=== PATIENT | male | born 1955 | race Hispanic/Latino ===

== ENCOUNTER 2023-01-13 11:46 | Inpatient (IN) | payer OTHER ==
--- NOTE | 2023-01-13 12:19 | RAD REPORT ---
EXAM DESCRIPTION: CT - Ct Stroke Brain Wo Cont - 01/13/2023 12:12 pm CLINICAL HISTORY: STROKE ALERT COMPARISON: No comparisons TECHNIQUE: Noncontrast head CT images were obtained without IV contrast. Multiplanar reformats were generated and reviewed. All CT scans are performed using dose optimization technique as appropriate and may include automated exposure control or mA/KV adjustment according to patient size. FINDINGS: No intracranial hemorrhage, mass, or edema. Midline structures are unremarkable. Normal ventricular caliber for age. Stevenson-white matter differentiation is preserved, without evidence of acute infarct. No abnormal extra- axial fluid collections. Mastoid air cells and visualized portions of the paranasal sinuses are clear. No acute bony findings. IMPRESSION: No evidence of an acute intracranial process. The findings were communicated to Gideon Bardales on 01/13/2023 at 12:02 hours.
[2023-01-13 12:34] LABS: Absolute Lymphocytes (CBC) 1.5 K/uL (0.7-4.9); Hematocrit 37.7 % (39.6-49.0); Lymphocytes % 17.8 % (15.3-44.8); MCV 96.2 fL (80-100); MPV 8.3 fL (7.6-11.3); Platelets 212 thou/uL (152-406); RBC Red Blood Cell Count 3.92 M/uL (4.33-5.43)
--- NOTE | 2023-01-13 12:36 | RAD REPORT ---
EXAM DESCRIPTION: CT - Head angio - 01/13/2023 12:12 pm CLINICAL HISTORY: WEAKNESS COMPARISON: Ct Stroke Brain Wo Cont dated 01/13/2023; Neck Angio dated 01/13/2023 TECHNIQUE: Axial CT angiography images of the head was performed with multiplanar and maximum intens ity projection reconstructions. Images performed following intravenous administration of 100mL Isovue 370. All CT scans are performed using dose optimization technique as appropriate and may include automated exposure control or mA/KV adjustment according to patient size. FINDINGS: No evidence of large vessel occlusion. No evidence of aneurysm or dissection flap is detec kayden. No flow-limiting stenosis or vascular malformation identified. Antegrade flow is seen in the vertebral arteries. The vertebral arteries are codominant. Diminutive c aliber of the basilar artery. Patent bilateral posterior communicating arteries. The visualized dural venous sinuses are grossly patent. IMPRESSION: No evidence of large vessel occlusion or flow-limiting stenosis.
--- NOTE | 2023-01-13 12:38 | RAD REPORT ---
EXAM DESCRIPTION: CT - Neck Angio - 01/13/2023 12:12 pm CLINICAL HISTORY: right sided weakness COMPARISON: No comparisons TECHNIQUE: Axial CT angiography images of the head was performed with multiplanar and maximum intens ity projection reconstructions. Images performed following intravenous administration of 100mL Isovue 370. All CT scans are performed using dose optimization technique as appropriate and may include automated exposure control or mA/KV adjustment according to patient size. Quantification of carotid stenosis, if any, is performed according to NASCET criteria. FINDINGS: A left aortic arch is identified with normal three vessel configuration of the great vesse ls. No significant flow abnormality is seen of the common carotid bilaterally. No significant stenosis is identified involving the cervical segments of both internal carotid arteri es. Mild atherosclerotic calcifications of the carotid bulbs are noted bilaterally, without signific ant stenosis Normal flow is seen within both vertebral arteries. Peripheral left upper lobe 2.4 x 1.7 cm nodule. IMPRESSION: No significant flow abnormality of the neck vessels is identified. Mild atherosclerotic calcifications. Peripheral left upper lobe 2.4 x 1.7 cm nodule, indeterminate. Additional evaluation by dedicated CT of the chest on elective basis should be considered. CAROTID STENOSIS REFERENCE USING NASCET CRITERIA: % ICA stenosis = (1 - narrowest ICA diameter/diameter of distal cervical ICA) x 100. Mild - <50% stenosis. Moderate - 50-69% stenosis. Severe - 70-94% stenosis. Near occlusion - 95-99% stenosis. Occluded - 100% stenosis.
[2023-01-13 12:41] LABS: Protime INR 0.91
[2023-01-13] MEDS ORDERED: NA CHLORIDE 0.9% 1,000 ML ONE (12:46)
[2023-01-13 12:54] LABS: ALT/SGPT 21 U/L (16-61); AST/SGOT 21 U/L (15-37); Albumin 3.6 g/dL (3.4-5.0); Alkaline Phosphatase 60 U/L (45-117); BUN Blood Urea Nitrogen 16 mg/dL (7-18); Bicarbonate 26 mEq/L (21-32); Bilirubin Direct < 0.1 mg/dL (0-0.2); Bilirubin Indirect, Calculated ND mg/dL (0.2-0.8); Bilirubin Total 0.3 mg/dL (0.2-1.0); Glomerular Filtration Rate 91 ml/min (=/>90); Glucose Level 96 mg/dL (74-106); Magnesium 2.4 mg/dL (1.6-2.4); Potassium 4.3 mEq/L (3.5-5.1); Protein, Total 7.3 g/dL (6.4-8.2); Sodium Level 135 mEq/L (136-145); Troponin High Sensitivity 19.9 pg/mL (<58.9)
[2023-01-13] MEDS ORDERED: ASPIRIN 81 MG CHEWABLE TABLET ONE (13:02)
--- NOTE | 2023-01-13 13:02 | ER ---
Nurse's Notes [facility] Name: Emanuel Avila Jr Age: 67 yrs Sex: Male : 1955 Arrival Date: 01/13/2023 Time: 11:46 Bed 13 Private MD: Diagnosis: Weakness;Paresthesia of skin Presentation: 01/13 11:45 Chief complaint: EMS states: THEY WERE CALLED DUE TO PATIENT HAVING RIGHT SIDED cm10 WEAKNESS. PT STATES THAT THE WEAKNESS HAS BEEN INTERMITTENT SINCE 0600. PT STATES THAT ON THE WAY TO THE HOSPITAL THE WEAKNESS AND NUMBNESS RESOLVED. Coronavirus screen: Client denies travel out of the [place] in the last 14 days. Ebola Screen: No symptoms or risks identified at this time. Initial Sepsis Screen: Does the patient meet any 2 criteria? No. Patient's initial sepsis screen is negative. Does the patient have a suspected source of infection? No. Patient's initial sepsis screen is negative. Risk Assessment: Do you want to hurt yourself or someone else? Patient reports no desire to harm self or others. Onset of symptoms was January 13, 2023 at 06:00. Care prior to arrival: IV initiated. 18 GA, in the left antecubital area, Glucose check: 96. 11:45 Method Of Arrival: EMS: [facility] cm10 11:45 Acuity: [place] 2 cm10 Triage Assessment: 14:00 General: Appears in no apparent distress. comfortable, Behavior is calm, cooperative, eh3 appropriate for age. Pain: Denies pain. Historical: - Allergies: 12:16 No Known Allergies; cm10 - Home Meds: 12:16 None [Active]; cm10 - PMHx: 12:16 None; cm10 - PSHx: 12:16 None; cm10 - Immunization history:: Adult Immunizations unknown. - Social history:: Smoking status: Patient reports the use of cigarette tobacco products, denies chronic smoking, but will smoke occasionally. - Family history:: not pertinent. - Hospitalizations: : No recent hospitalization is reported. Screenin:26 [facility] ED Fall Risk Assessment (Adult) History of falling in the last 3 months, cm10 including since admission No falls in past 3 months (0 pts) Confusion or Disorientation No (0 pts) Intoxicated or Sedated No (0 pts) Impaired Gait No (0 pts) Mobility Assist Device Used No (0 pt) Altered Elimination No (0 pt) Score/Fall Risk Level 0 - 2 = Low Risk Oriented to surroundings, Maintained a safe environment, Hourly rounding (assess needs \T\ fall precautionary measures) done. Abuse screen: Denies threats or abuse. Denies injuries from another. Nutritional screening: No deficits noted. Tuberculosis screening: No symptoms or risk factors identified. Assessment: 11:49 Reassessment: CODE STROKE CALLED 1149. General: Appears in no apparent distress. cm10 comfortable, Behavior is calm, cooperative. Neuro: No deficits noted. Level of Consciousness is awake, alert, obeys commands, Oriented to person, place, time, situation, Straightedge Man are equal bilaterally Moves all extremities. Speech is normal, Facial symmetry appears normal, Intact. Respiratory: No deficits noted. Airway is patent Respiratory effort is even, unlabored, Respiratory pattern is regular, symmetrical. 14:00 Reassessment: Patient appears in no apparent distress at this time. Patient and/or 3 family updated on plan of care and expected duration. Pain level reassessed. Patient is alert, oriented x 3, equal unlabored respirations, skin warm/dry/pink. 15:00 Reassessment: Patient appears in no apparent distress at this time. Patient and/or eh3 family updated on plan of care and expected duration. Pain level reassessed. Patient is alert, oriented x 3, equal unlabored respirations, skin warm/dry/pink. Vital Signs: 11:45 BP 172 / 76; Pulse 76; Resp 16; Temp 98.4(O); Pulse Ox 100% on R/A; Pain 0/10; cm10 12:26 Weight 53.98 kg (R); cm10 12:47 BP 99 / 62; Pulse 70; Resp 16; Pulse Ox 97% ; bp 14:00 BP 99 / 69; Pulse 68; Resp 18; Pulse Ox 98% on R/A; eh3 15:00 BP 89 / 70; Pulse 81; Resp 18; Pulse Ox 99% on R/A; eh3 11:45 Pain Scale: Adult cm10 ED Course: 11:45 Maintain EMS IV. Dressing intact. Good blood return noted. Site clean \T\ dry. Gauge \T\ cm 10 site: 18G RAC. 11:50 Patient arrived in ED. bp 11:51 Gideon Bardales MD is Attending Physician. rn 12:14 CT Stroke Brain w/o Contrast In Process Unspecified. EDMS 12:[address] In Process Unspecified. EDMS 12:[address] In Process Unspecified. EDMS 12:16 Triage completed. cm10 12:17 Arm band placed on Patient placed in an exam room, on a stretcher, on pulse oximetry. cm10 12:25 Basic Metabolic Panel Sent. cm10 12:25 CBC with Diff Sent. cm10 12:25 Hepatic Function Sent. cm10 12:25 Protime (+inr) Sent. cm10 12:25 Ptt, Activated Sent. cm10 12:25 Magnesium Sent. cm10 12:38 Inserted saline lock: 22 gauge in right forearm, using aseptic technique. Blood cm10 collected. 12:46 Rashaad Green RN is Primary Nurse. bp 12:50 Stroke CXR 1 View In Process Unspecified. EDMS 13:02 Ravindra Bardales MD is Hospitalizing Provider. rn 14:00 Report received from MIKEY Neil. eh3 14:00 Patient has correct armband on for positive identification. Placed in gown. Bed in low eh3 position. Call light in reach. Side rails up X2. Provided Education on: Use of call carrera. Client placed on continuous cardiac and pulse oximetry monitoring. NIBP monitoring applied. 16:30 No provider procedures requiring assistance completed. Patient admitted, IV remains in eh3 place. Administered Medications: 12:38 Drug: NS 0.9% IV 1000 ml Route: IV; Rate: 1000 ml; Site: right forearm; cm10 14:00 Follow up: IV Status: Completed infusion; IV Intake: 1000ml eh3 12:57 Drug: Aspirin PO Chewable Tablet 324 mg Route: PO; bp 14:00 Follow up: Response: No adverse reaction eh3 15:00 Drug: foLIC Acid IVPB 1 mg Route: IVPB; Site: right forearm; eh3 16:00 Follow up: Response: No adverse reaction; IV Status: Completed infusion; IV Intake: [id number] Medication: 12:26 VIS not applicable for this client. cm10 Intake: 14:00 IV: 1000ml; Total: 1000ml. eh3 16:00 IV: 10ml; Total: 1010ml. eh3 Outcome: 13:02 Decision to Hospitalize by Provider. rn 16:32 Admitted to Med/surg accompanied by tech, via wheelchair, room 221, Report called to [facility] Grecia 16:32 Condition: stable 16:32 Instructed on the need for admit. 17:25 Patient left the ED. [facility] Signatures: Dispatcher [employer] EDGideon Taylor MD MD rn Peltier, Brian, RN Floridalma Banerjee RN RN [facility] Joleen Gabriel RN RN 10 Corrections: (The following items were deleted from the chart) 12:25 12:16 Social history: Smoking status: unknown cm10 cm10
--- NOTE | 2023-01-13 13:02 | EDPHYS ---
Physician Documentation [facility] Name: Emanuel Avila Jr Age: 67 yrs Sex: Male : 1955 Arrival Date: 01/13/2023 Time: 11:46 Bed 13 Private MD: ED Physician Gideon Bardales HPI: 01/13 12:21 This 67 yrs old Male presents to ER via EMS with complaints of weakness. rn 12:21 The patient presents to the emergency department with weakness of the right upper rn extremity, right lower extremity, paresthesias of the right lower extremity, right upper extremity. Onset: The symptoms/episode began/occurred this morning, at 06:00. Severity of symptoms: At their worst the symptoms were moderate in the emergency department the symptoms have improved. Current symptoms: Currently, the patient is not experiencing any symptoms. The patient has not experienced similar symptoms in the past. Pt reports woke up at 0600 with right sided weakness and numbness, has been intermittent, worsened at work, 911 was called, now no weakness/numbness. . Historical: - Allergies: 12:16 No Known Allergies; cm10 - Home Meds: 12:16 None [Active]; cm10 - PMHx: 12:16 None; cm10 - PSHx: 12:16 None; cm10 - Immunization history:: Adult Immunizations unknown. - Social history:: Smoking status: Patient reports the use of cigarette tobacco products, denies chronic smoking, but will smoke occasionally. - Family history:: not pertinent. - Hospitalizations: : No recent hospitalization is reported. ROS: 12:21 Constitutional: Negative for fever, chills, and weight loss, Eyes: Negative for injury, rn pain, redness, and discharge, Neck: Negative for injury, pain, and swelling, Cardiovascular: Negative for chest pain, palpitations, and edema, Respiratory: Negative for shortness of breath, cough, wheezing, and pleuritic chest pain, Abdomen/GI: Negative for abdominal pain, nausea, vomiting, diarrhea, and constipation, Back: Negative for injury and pain, MS/Extremity: Negative for injury and deformity, Skin: Negative for injury, rash, and discoloration, Neuro: Negative for headache, and seizure. Exam: 12:21 Constitutional: This is a well developed, well nourished patient who is awake, alert, rn and in no acute distress. Head/Face: Normocephalic, atraumatic. Eyes: Pupils equal round and reactive to light, extra-ocular motions intact. ENT: dry MM Cardiovascular: Regular rate and rhythm. No pulse deficits. Respiratory: No increased work of breathing, no retractions or nasal flaring. Abdomen/GI: Soft, non-tender Skin: Warm, dry MS/ Extremity: Pulses equal, no cyanosis. Neuro: Awake and alert, GCS 15, oriented to person, place, time, and situation. Cranial nerves II-XII grossly intact. Motor strength 5/5 in all extremities. Sensory grossly intact. Cerebellar exam normal. Vital Signs: 11:45 BP 172 / 76; Pulse 76; Resp 16; Temp 98.4(O); Pulse Ox 100% on R/A; Pain 0/10; cm10 12:26 Weight 53.98 kg (R); cm10 12:47 BP 99 / 62; Pulse 70; Resp 16; Pulse Ox 97% ; bp 14:00 BP 99 / 69; Pulse 68; Resp 18; Pulse Ox 98% on R/A; eh3 15:00 BP 89 / 70; Pulse 81; Resp 18; Pulse Ox 99% on R/A; eh3 11:45 Pain Scale: Adult cm10 MDM: 11:51 Patient medically screened. rn 12:31 ED course: Pt back to baseline. ED course: CT head without acute findings per radiology.rn 13:01 Data reviewed: vital signs, nurses notes, lab test result(s), EKG, radiologic studies, rn CT scan, and as a result, I will admit patient. Consideration of Admission/Observation Patient was admitted/placed on observation. Escalation of care including admission/observation considered. I considered the following discharge prescriptions or medication management in the emergency department Medications were administered in the Emergency Department. See MAR. Counseling: I had a detailed discussion with the patient and/or guardian regarding: the historical points, exam findings, and any diagnostic results supporting the discharge/admit diagnosis, lab results, radiology results, the need for further work-up and treatment in the hospital. 01/13 11:53 Order name: Basic Metabolic Panel; Complete Time: 12:57 rn 01/13 11:53 Order name: CBC with Diff; Complete Time: 12:57 rn 01/13 11:53 Order name: Hepatic Function; Complete Time: 12:57 rn 01/13 11:53 Order name: High Sensitivity Troponin; Complete Time: 12:57 rn 01/13 11:53 Order name: Protime (+inr); Complete Time: 12:57 rn 01/13 11:53 Order name: Ptt, Activated; Complete Time: 12:57 rn 01/13 11:53 Order name: Magnesium; Complete Time: 12:57 rn 01/13 15:01 Order name: Magnesium EDMS 01/13 15:01 Order name: Phosphorus EDMS 01/13 15:01 Order name: T4 Free EDMS 01/13 15:01 Order name: Thyroid Stimulating Hormone EDMS 01/13 15:01 Order name: Urinalysis w/ reflexes EDMS 01/13 15:01 Order name: Basic Metabolic Panel EDMS 01/13 15:01 Order name: Basic Metabolic Panel EDMS 01/13 15:01 Order name: CBC with Automated Diff EDMS 01/13 15:01 Order name: CBC with Automated Diff EDMS 01/13 15:01 Order name: Lipid Profile EDMS 01/13 15:01 Order name: Lipid Profile EDMS 01/13 15:44 Order name: CREATININE WHOLE BLOOD EDMS 01/13 11:53 Order name: CT Stroke Brain w/o Contrast; Complete Time: 12:57 rn 01/13 11:53 Order name: Stroke CXR 1 View; Complete Time: 13:14 rn 01/13 11:53 Order name: Head Angio CT; Complete Time: 12:57 rn 01/13 11:53 Order name: Neck Angio CT; Complete Time: 12:57 rn 01/13 15:03 Order name: Head Brain Wo Cont EDMS 01/13 16:10 Order name: MRI EDMS 01/13 11:53 Order name: EKG; Complete Time: 11:54 rn 01/13 15:01 Order name: CONS Physician Consult EDMS 01/13 15:03 Order name: Physical Therapy Consult EDMS 01/13 11:53 Order name: Accucheck; Complete Time: 12:46 rn 01/13 11:53 Order name: Cardiac monitoring; Complete Time: 12:46 rn 01/13 11:53 Order name: EKG - Nurse/Tech; Complete Time: 12:21 rn 01/13 11:53 Order name: IV Saline Lock; Complete Time: 12:18 rn 01/13 11:53 Order name: Labs collected and sent; Complete Time: 12:25 rn 01/13 11:53 Order name: O2 Per Protocol; Complete Time: 12:21 rn 01/13 11:53 Order name: O2 Sat Monitoring; Complete Time: 12:21 rn 01/13 11:53 Order name: Stroke Swallow Screen; Complete Time: 12:46 rn Administered Medications: 12:38 Drug: NS 0.9% IV 1000 ml Route: IV; Rate: 1000 ml; Site: right forearm; cm10 14:00 Follow up: IV Status: Completed infusion; IV Intake: 1000ml eh3 12:57 Drug: Aspirin PO Chewable Tablet 324 mg Route: PO; bp 14:00 Follow up: Response: No adverse reaction eh3 15:00 Drug: foLIC Acid IVPB 1 mg Route: IVPB; Site: right forearm; eh3 16:00 Follow up: Response: No adverse reaction; IV Status: Completed infusion; IV Intake: [id number] Disposition Summary: 01/13/23 13:02 Hospitalization Ordered Hospitalization Status: Observation rn Provider: Ravindra Bardales rn Location: Telemetry/MedSurg (observation) rn Condition: Stable rn Problem: new rn Symptoms: have improved rn Bed/Room Type: Standard rn Room Assignment: 221(01/13/23 16:05) bd Diagnosis - Weakness rn - Paresthesia of skin rn Forms: - Medication Reconciliation Form rn - SBAR form rn Signatures: Dispatcher [employer] EDSilvana Good Roman, MD MD rn Peltier, Brian, RN RN Floridalma Galloway RN RN Joleen Casey RN RN cm10 Corrections: (The following items were deleted from the chart) 12:25 12:16 Social history: Smoking status: unknown cm10 cm10 16:05 13:02 rn bd
--- NOTE | 2023-01-13 13:02 | RAD REPORT ---
EXAM DESCRIPTION: Krzysztof Single View01/13/2023 12:49 pm CLINICAL HISTORY: Numbness and weakness COMPARISON: none FINDINGS: 2.6 centimeter nodule left upper lobe Mild right upper lobe opacity Lungs are mildly hyperaerated. Heart is normal size IMPRESSION: 2.6 centimeter nodule left upper lobe may represent neoplasm. Mild right upper lobe opacity probably scarring. Mildly hyperaerated lungs. Nonemergent CT scan chest recommended
[2023-01-13] MEDS ORDERED: TRAMADOL HCL 50 MG TAB PO PRN (14:53)
[2023-01-13] MEDS ORDERED: ACETAMINOPHEN 325 MG TABLET PO PRN (14:53)
[2023-01-13] MEDS ORDERED: ONDANSETRON 4 MG/2 ML VIAL IV PRN (14:58)
--- NOTE | 2023-01-13 15:02 | P.HP ---
Certification for Inpatient Patient admitted to: Observation With expected LOS: <2 Midnights Patient will require the following post-hospital care: None Practitioner: I am a practitioner with admitting privileges, knowledge of patient current condition, hospital course, and medical plan of care. Services: Services provided to patient in accordance with Admission requirements found in Title 42 Section 412.3 of the Code of Federal Regulations Patient History Date of Service: 01/13/23 Reason for admission: TIA History of Present Illness: Patient is a 67-year-old male with a past medical history significant for nicotine dependence who presents with complaint of right sided weakness onset this morning. Patient reported that he was at home when he had a sudden onset of right sided weakness and patient reported that he could not move the right side of his body. Symptoms resolved shortly. An hour later patient had a similar experience while at work. Patient reported that he completed his work and got into his car. When he got to the traffic stop, patient had a similar episode and patient was able to stumble out of his car. Patient reported that he fell shortly after on the side of the road. Patient denies hitting his head or losing consciousness. Patient reported that he could not get up and a good Zoroastrianism called EMS. Patient reported that he started experiencing tingling\numbness in his right hand after the second episode. While in the ER patient had tingling\numbness in the left hand. Patient denies any other signs and symptoms. Symptoms are aggravated or relieved by nothing. Patient was brought to the hospital for medical evaluation. Allergies No Known Allergies Allergy (Unverified 08/29/15 17:06) - Past Medical/Surgical History -: Nicotine dependence Past Surgical History: Reviewed- Non-Contributory - Family History Father -: Heart disease, Other (see notes) (ID) - Social History Smoking Status: Current every day smoker Counseled patient to stop smoking for: less than 10 minutes Smoking therapy provided: Yes Patient receptive to therapy: Yes Alcohol use: Yes CD- Drugs: No Place of Residence: Home Review of Systems General: Weakness Eyes: Unremarkable ENT: Unremarkable Respiratory: Unremarkable Cardiovascular: Unremarkable Gastrointestinal: Unremarkable Genitourinary: Unremarkable Musculoskeletal: Other (Poor gait ) Integumentary: Unremarkable Neurological: Weakness, Numbness, Other (Bilateral hands tingling ) Lymphatics: Unremarkable Physical Examination - Physical Exam General: Alert, In no apparent distress, Oriented x3, Cooperative HEENT: Atraumatic, PERRLA, Mucous membr. moist/pink, EOMI, Sclerae nonicteric Neck: Supple, 2+ carotid pulse no bruit, No LAD, Without JVD or thyroid abnormality Respiratory: Clear to auscultation bilaterally, Normal air movement Cardiovascular: No edema, Regular rate/rhythm, Normal S1 S2 Capillary refill: <2 Seconds Gastrointestinal: Normal bowel sounds, Soft and benign, No tenderness Musculoskeletal: No clubbing, No contractures, No tenderness Integumentary: No rashes, No significant lesion Neurological: Normal speech, Normal strength at 5/5 x4 extr, Normal tone, Normal affect Lymphatics: No axilla or inguinal lymphadenopathy - Studies Laboratory Data (last 24 hrs) 01/13/23 01/13/23 01/13/23 12:22 12:22 12:22 WBC 8.40 Hgb 12.4 L Hct 37.7 L Plt Count 212 PT 10.0 INR 0.91 APTT 29.0 Sodium 135 L Potassium 4.3 BUN 16 Creatinine 0.93 Glucose 96 Magnesium 2.4 Total Bilirubin 0.3 AST 21 ALT 21 Alkaline Phosphatase 60 Assessment and Plan - Plan --CVA. MRI brain indicates a 20 x 4 millimeter acute infarction left basal ganglia/left internal capsule. Neurology consulted. Patient placed on aspirin, folic acid and statin. Echocardiogram pending to assess current structures and function. PT eval and treat. Will await further recommendation from neurologist. --Nicotine dependence. Patient counseled on tobacco cessation. Refuses nicotine patch. --Paresthesias. Secondary to CVA. Continue supportive care. --Abnormality of gait and mobility. PT eval and treat. Continue supportive care. --DVT prophylaxis with Lovenox subQ Discharge Plan: Home Plan to discharge in: 48 Hours - Advance Directives Does patient have a Living Will: No Does patient have a Durable POA for Healthcare: No - Code Status/Comfort Care Code Status Assessed: Yes Physician Review: Patient Assessed, Agree with Above Assessment and Plan Critical Care: No
[2023-01-13] MEDS ORDERED: FOLIC ACID 5 MG/ML VIAL ONE (15:10)
--- NOTE | 2023-01-13 16:10 | RAD REPORT ---
EXAM DESCRIPTION: MRI - Brain Wo Cont - 01/13/2023 3:48 pm CLINICAL HISTORY: Right side weakness COMPARISON: Head CT January 2003 TECHNIQUE: Axial, sagittal, and coronal magnetic resonance images of the brain were obtained. FINDINGS: Diffusion-weighted/ADC mapping demonstrate a 20 x 4 millimeter area of abnormal signal left basal nicol glia extending into the posterior left internal capsule consistent with acute infarction. The ventricles are normal caliber. An extra-axial fluid collection is not noted. Fluid within the sinuses/mastoids is not seen IMPRESSION: 20 x 4 millimeter acute infarction left basal ganglia/left internal capsule
[2023-01-13 17:50] VITALS: BMI 18.1
[2023-01-13 18:14] LABS: Magnesium 2.4 mg/dL (1.6-2.4); Phosphorus 3.3 mg/dL (2.5-4.9); Thyroid Stimulating Hormone 1.85 uIU/mL (0.358-3.740)
[2023-01-13] MEDS: ENOXAPARIN 40 MG/0.4 ML SQ SCH (18:28)
[2023-01-13 19:17] LABS: Specific Gravity > 1.030 (1.005-1.030); Urine Bilirubin NEGATIVE (Negative); Urine Blood Negative (Negative); Urine Clarity Clear (Clear); Urine Color Light-Yellow (Yellow); Urine Glucose NEGATIVE (Negative); Urine Protein NEGATIVE (Negative); Urine Urobilinogen Normal (Normal)
[2023-01-13] MEDS ORDERED: PNEUMOCOCCAL VACCINE 0.5 ML IMVAC ONE (20:00)
[2023-01-13] MEDS: FOLIC ACID 1 MG TABLET PO SCH (21:16)
[2023-01-13] MEDS: ATORVASTATIN 40 MG TAB PO SCH (21:17)
[2023-01-14 03:39] LABS: Absolute Lymphocytes (CBC) 1.8 K/uL (0.7-4.9); Lymphocytes % 22.3 % (15.3-44.8); MCV 95.9 fL (80-100); MPV 9.2 fL (7.6-11.3); Platelets 218 thou/uL (152-406); RBC Red Blood Cell Count 4.07 M/uL (4.33-5.43)
[2023-01-14 03:48] LABS: Potassium 3.8 mEq/L (3.5-5.1)
[2023-01-14] MEDS: ASPIRIN 81 MG CHEWABLE TABLET PO SCH (08:15)
[2023-01-14] MEDS: ENOXAPARIN 40 MG/0.4 ML SQ SCH (08:15)
[2023-01-14] MEDS: FOLIC ACID 1 MG TABLET PO SCH (08:15)
[2023-01-14] MEDS ORDERED: POTASSIUM CL SA 10 MEQ TAB PO ONE (09:00)
--- NOTE | 2023-01-14 19:25 | P.PN ---
Subjective Date of Service: 01/14/23 Chief Complaint: TIA Patient is complaining of right leg weakness. He stated his right arm weakness is getting better. She denies any trouble swallowing. Physical Examination - Vital Signs Temperature: 98.6 F Blood Pressure: 98/54 Pulse: 79 Respirations: 18 Pulse Ox (%): 98 Assessment And Plan - Plan Physical Exam General: Alert, In no apparent distress, Oriented x3, Cooperative HEENT: PERRLA, EOMI, Sclerae nonicteric Neck: Supple, 2+ carotid pulse no bruit, Without JVD or thyroid abnormality Respiratory: Clear to auscultation bilaterally, Normal air movement Cardiovascular: No edema, Regular rate/rhythm, Normal S1 S2 Gastrointestinal: Normal bowel sounds, Soft and benign, No tenderness Musculoskeletal: No clubbing, No tenderness Integumentary: No rashes, No significant lesion Neurological: Normal speech, right-sided weakness, Normal affect Diagnosis Acute CVA MRI brain indicates a 20 x 4 millimeter acute infarction left basal ganglia/left internal capsule. Neurology consulted. Continue aspirin, folic acid and statin. Echocardiogram result is pending. Seen by PT. patient has difficulty ambulating due to abnormal gait. No problem with swallowing. Permissive hypertension. Patient may be a candidate for inpatient rehab. Nicotine dependence. Tobacco cessation counseling provided. DVT prophylaxis:Lovenox subQ Disposition: Considering inpatient rehab.
[2023-01-14] MEDS: ATORVASTATIN 40 MG TAB PO SCH (20:13)
[2023-01-15 03:36] LABS: Potassium 4.1 mEq/L (3.5-5.1)
--- NOTE | 2023-01-15 06:41 | ECHO ---
HEIGHT: 5 ft 8 in WEIGHT: 119 lb 0 oz DATE OF STUDY: 01/14/[address]: Shayy Aguila 2-DIMENSIONAL: YES M.MODE: YES DOPPLER: YES COLOR FLOW: YES TDS: PORTABLE: YES DEFINITY: BUBBLE STUDY: DIAGNOSIS: CEREBRAL VASCULAR ACCIDENT CARDIAC HISTORY: CATHERIZATION: NO SURGERY: NO PROSTHETIC VALVE: NO PACEMAKER: NO MEASUREMENTS (cm) DIASTOLIC (NORMALS) SYSTOLIC (NORMALS) IVSd 1.0 (0.6-1.2) LA Diam 1.6 (1.9-4.0) LVEF 63% LVIDd 3.2 (3.5-5.7) LVIDs 2.2 (2.0-3.5) %FS 33% LVPWd 1.2 (0.6-1.2) Ao Diam 2.3 (2.0-3.7) 2 DIMENSIONAL ASSESSMENT: RIGHT ATRIUM: NORMAL LEFT ATRIUM: NORMAL RIGHT VENTRICLE: NORMAL LEFT VENTRICLE: NORMAL TRICUSPID VALVE: NORMAL MITRAL VALVE: NORMAL PULMONIC VALVE: NORMAL AORTIC VALVE: NORMAL PERICARDIAL EFFUSION: NONE AORTIC ROOT: NORMAL LEFT VENTRICULAR WALL MOTION: NORMAL DOPPLER/COLOR FLOW: MILD AORTIC INSUFFICIENCY COMMENTS: 1. NORMAL LEFT VENTRICULAR EJECTION FRACTION 60-65% 2. NORMAL WALL MOTION 3. NORMAL DIASTOLIC FUNCTION 4. MILD AORTIC INSUFFICIENCY TECHNOLOGIST: SOCORRO HILARIO
[2023-01-15] MEDS: ASPIRIN 81 MG CHEWABLE TABLET PO SCH (08:21)
[2023-01-15] MEDS: FOLIC ACID 1 MG TABLET PO SCH (08:21)
[2023-01-15] MEDS: ENOXAPARIN 40 MG/0.4 ML SQ SCH (08:22)
--- NOTE | 2023-01-15 15:45 | P.PN ---
Subjective Date of Service: 01/15/23 Chief Complaint: TIA No new changes from yesterday. Patient has no new complaints. He is tolerating his diet. No change in right upper extremity weakness. Physical Examination - Vital Signs Temperature: 98.5 F Blood Pressure: 131/64 Pulse: 74 Respirations: 16 Pulse Ox (%): 97 - Studies Laboratory Data (last 24 hrs) 01/15/23 02:56 Sodium 137 Potassium 4.1 BUN 15 Creatinine 0.85 Glucose 117 H Assessment And Plan - Plan Physical Exam General: Alert, In no apparent distress, Oriented x3, Cooperative Neck: Supple, no elevated JVD. Respiratory: Clear to auscultation bilaterally, Normal air movement Cardiovascular: No edema, Regular rate/rhythm, Normal S1 S2 Gastrointestinal: Normal bowel sounds, Soft and benign, No tenderness Musculoskeletal: No clubbing, No tenderness Integumentary: No rashes. Neurological: Normal speech, right-sided weakness, Normal affect Diagnosis Acute CVA MRI brain indicates a 20 x 4 millimeter acute infarction left basal ganglia/left internal capsule. Neurology consulted. Continue aspirin, folic acid and statin. Echocardiogram is unremarkable, no thrombus. Seen by PT. Patient has difficulty ambulating due to abnormal gait. No problem with swallowing. Permissive hypertension. Social service consulted to evaluate for inpatient rehab placement. Nicotine dependence. Tobacco cessation counseling provided. DVT prophylaxis:Lovenox subQ Disposition: Inpatient rehab.
--- NOTE | 2023-01-15 18:16 | EKG ---
Test Date: 2023-01-13 Test Time: 12:19:09 Director [facility]: BUTCH MEASUREMENT RESULTS: Intervals: Rate: 67 MI: 198 QRSD: 82 QT: 372 QTc: 393 [place]: P: 80 MI: 198 QRS: 69 T: 77 INTERPRETIVE STATEMENTS: Normal sinus rhythm Normal ECG No previous ECG available for comparison Electronically Signed On 01-15-23 18:12:26 CDT by Michael Feng
[2023-01-15] MEDS: ATORVASTATIN 40 MG TAB PO SCH (21:22)
[2023-01-15] MEDS: ENSURE ENLIVE 237 ML CAN PO SCH (21:23)
[2023-01-16] MEDS: FOLIC ACID 1 MG TABLET PO SCH (08:22)
[2023-01-16] MEDS: ENSURE ENLIVE 237 ML CAN PO SCH (08:22)
[2023-01-16] MEDS: ASPIRIN 81 MG CHEWABLE TABLET PO SCH (08:22)
[2023-01-16] MEDS: ENOXAPARIN 40 MG/0.4 ML SQ SCH (08:22)
[2023-01-16 08:33] VITALS: O2SAT 94
--- NOTE | 2023-01-16 12:52 | P.DS ---
Admission Date: 01/15/23 Discharge Date: 01/16/23 Disposition: TRANSFER TO INPATIENT REHAB Discharge Condition: FAIR Reason for Admission: TIA Brief History of Present Illness: Patient is a 67-year-old male with a past medical history significant for nicotine dependence who presents with complaint of right sided weakness onset this morning. Patient reported that he was at home when he had a sudden onset of right sided weakness and patient reported that he could not move the right side of his body. Symptoms resolved shortly. An hour later patient had a similar experience while at work. Patient reported that he completed his work and got into his car. When he got to the traffic stop, patient had a similar episode and patient was able to stumble out of his car. Patient reported that he fell shortly after on the side of the road. Patient denies hitting his head or losing consciousness. Patient reported that he could not get up and someone called EMS. Patient reported that he started experiencing tingling\numbness in his right hand after the second episode. While in the ER patient had tingling\numbness in the left hand. Head CT was negative for acute disease. Patient was hospitalized for further management. Hospital Course: Diagnosis Acute CVA Patient admitted to the medical floor and stroke protocol initiated. MRI brain indicated a 20 x 4 millimeter acute infarction left basal ganglia/left internal capsule. Neurology consulted. Patient placed on aspirin, folic acid and statin. Echocardiogram is unremarkable, no thrombus. Seen by PT. Patient has difficulty ambulating due to abnormal gait. Inpatient rehab recommended. No problem with swallowing. Patient has been accepted to inpatient rehab. Nicotine dependence. Tobacco cessation counseling provided. Vital Signs/Physical Exam: Temp Pulse Resp BP Pulse Ox 98.0 F 60 16 159/68 H 94 01/16/23 08:00 01/16/23 08:00 01/16/23 08:00 01/16/23 08:00 01/16/23 08:00 General: Alert, In no apparent distress, Oriented x3 HEENT: Mucous membr. moist/pink Neck: JVD not distended Respiratory: Clear to auscultation bilaterally, Normal air movement Cardiovascular: Regular rate/rhythm, Normal S1 S2 Gastrointestinal: Normal bowel sounds, Soft and benign, Non-distended Musculoskeletal: No swelling Neurological: Other (Right-sided weakness) Laboratory Data at Discharge: WBC 8.20 thou/uL (4.3-10.9) 01/14/23 02:00 Hgb 13.1 g/dL (13.6-17.9) L 01/14/23 02:00 Hct 39.0 % (39.6-49.0) L 01/14/23 02:00 Plt Count 218 thou/uL (152-406) 01/14/23 02:00 PT 10.0 SECONDS (9.5-12.5) 01/13/23 12:22 INR 0.91 01/13/23 12:22 APTT 29.0 SECONDS (24.3-36.9) 01/13/23 12:22 Sodium 137 mEq/L (136-145) 01/15/23 02:56 Potassium 4.1 mEq/L (3.5-5.1) 01/15/23 02:56 BUN 15 mg/dL (7-18) 01/15/23 02:56 Creatinine 0.85 mg/dL (0.70-1.30) 01/15/23 02:56 Glucose 117 mg/dL (74-106) H 01/15/23 02:56 Phosphorus 3.3 mg/dL (2.5-4.9) 01/13/23 17:34 Magnesium 2.4 mg/dL (1.6-2.4) 01/13/23 17:34 Total Bilirubin 0.3 mg/dL (0.2-1.0) 01/13/23 12:22 AST 21 U/L (15-37) 01/13/23 12:22 ALT 21 U/L (16-61) 01/13/23 12:22 Alkaline Phosphatase 60 U/L (45-117) 01/13/23 12:22 Triglycerides 124 mg/dL (<150) 01/14/23 02:00 Cholesterol 175 mg/dL (<200) 01/14/23 02:00 HDL Cholesterol 44 mg/dL (40-60) 01/14/23 02:00 Cholesterol/HDL Ratio 3.98 01/14/23 02:00 Home Medications: Aspirin Chewable [Aspirin Chewable*] 81 mg PO DAILY tab.chew 01/16/23 Atorvastatin Calcium [Lipitor] 40 mg PO BEDTIME tab 01/16/23 Ensure Enlive 237 ml PO BID can 01/16/23 Folic Acid 1 mg PO DAILY #30 tab 01/16/23 New Medications: Folic Acid 1 mg PO DAILY #30 tab Diet: AHA Activity: Fall precautions Followup: NONE,NONE [Primary Care Provider] - Time spent managing pt's care (in minutes): 36
[2023-01-16 12:54] VITALS: BP 142/60; TEMP 98.5
== END 2023-01-16 13:00 | DRG 65 ==
LOC: ER 11:46 → ERHOLD 14:52 → 2ND 16:35 → OBSVTOIN 01-15 08:29
PROVIDERS: ADMIT Hospitalist; ATTEND Internal Medicine
DX: I63.9 Cerebral infarction, unspecified (principal); E44.0 Moderate protein-calorie malnutrition; Z68.1 Body mass index [BMI] 19.9 or less, adult; G81.91 Hemiplegia, unspecified affecting right dominant side; I10 Essential (primary) hypertension; F17.210 Nicotine dependence, cigarettes, uncomplicated; R20.2 Paresthesia of skin; R26.9 Unspecified abnormalities of gait and mobility; F17.200 Nicotine dependence, unspecified, uncomplicated; Z71.6 Tobacco abuse counseling; Z79.82 Long term (current) use of aspirin; Z79.899 Other long term (current) drug therapy
CPT/HCPCS: 36415; 70450; 70496; 70498; 70551; 71045; 80048; 80061; 80076; 81003; 82565; 83036; 83735; 84100; 84439; 84443; 84484; 85025; 85610; 85730; 93005; 93306; 96361; 96365; 97110; 97112; 97116; 97161; 97530; 99285; J1650; J7030; Q9967

== ENCOUNTER 2023-01-16 11:59 | Inpatient (IN) | payer OTHER ==
[2023-01-16 14:40] VITALS: BMI 16.9
[2023-01-16 15:09] LABS: Specific Gravity 1.029 (1.005-1.030); Urine Bacteria None Seen /HPF (<20); Urine Bilirubin NEGATIVE (Negative); Urine Blood Negative (Negative); Urine Clarity Clear (Clear); Urine Color Light-Yellow (Yellow); Urine Glucose NEGATIVE (Negative); Urine Protein NEGATIVE (Negative); Urine Urobilinogen Normal (Normal)
[2023-01-16] MEDS ORDERED: ACETAMINOPHEN 500 MG TAB PO PRN (17:34)
[2023-01-16] MEDS: LIDOCAINE 4% PATCH TOP SCH (18:59)
[2023-01-16] MEDS: ENSURE ENLIVE 237 ML CAN PO SCH (19:06)
[2023-01-16] MEDS: ATORVASTATIN 40 MG TAB PO SCH (21:00)
[2023-01-17 04:01] LABS: Absolute Lymphocytes (CBC) 2.4 K/uL (0.7-4.9); Hematocrit 42.6 % (39.6-49.0); Lymphocytes % 26.5 % (15.3-44.8); MCV 95.8 fL (80-100); MPV 8.6 fL (7.6-11.3); Platelets 230 thou/uL (152-406); RBC Red Blood Cell Count 4.44 M/uL (4.33-5.43)
[2023-01-17 04:21] LABS: Albumin 3.6 g/dL (3.4-5.0); Magnesium 2.3 mg/dL (1.6-2.4); Potassium 4.4 mEq/L (3.5-5.1)
--- NOTE | 2023-01-17 05:12 | HP ---
Date of Admission: 01/16/2023 Time Of Service: 1:30 p.m. Chief Complaint: "I had a stroke and my right-side is weak." History Of Present Illness: Mr. Avila is a 67-year-old patient who came to [facility] wi th right-sided weakness after he was found by Paul Lopez lying on the side of the road, unable to get up. At [facility], he was found unable to move his entire right side when he was awake monica. However, his symptoms did improve shortly thereafter. However, an hour later, symptoms recurre d. The patient was actually sent back home after his symptoms had resolved. When his symptoms recur red again, he drove himself to the hospital and had worsening weakness on the way. He was able to st umble out of the car and eventually got to side of the road and was unable to get up and that is actu ally how he was brought in. Brain MRI revealed a 20 x 4 mm acute infarct in the left basal ganglia, left internal capsule. Since he was well out of the window for TNK, he was not given. He was admitt ed for further stroke evaluation and management. Hemoglobin and hematocrit were stable. Sodium norm al. He was allowed to have permissive hypertension, placed on aspirin, folic acid, and statin and fu rther evaluated with an echocardiogram, which showed mild aortic insufficiency. He does have some in stability of gait with a tendency to drift and fall towards the right and was therefore because of hi s acute stroke and high fall risk and fluctuating course, it was determined the patient would be best managed inpatient as he receives aggressive physical therapy to begin to return towards normal where he was fully independent. The patient was, therefore, determined to be an appropriate candidate for inpatient rehabilitation and was therefore admitted for physical, occupational, and speech therapy a s appropriate in the inpatient rehabilitation unit. Past Medical History: Tobacco dependency. Allergies: NO KNOWN DRUG ALLERGIES. Family History: Heart disease in father. Social History: Smokes daily. Drinks alcohol as well regularly and denies IV drug use. The patient lives at home. X-ray/imaging: Brain MRI on 01/14/2023 showed a 20 x 4 mm acute infarct in the left basal ganglia an d left internal capsule. On 01/14/2023, an echocardiogram revealed mild aortic insufficiency. CT an giogram of the head and neck done on 01/13/2023 showed no significant flow abnormalities of the head, neck, mild arthrosclerotic changes noted. However, there was an incidental finding of a 2.4 x 1.7 n odule in the left upper lung lobe. It is noted that a dedicated CT scan of the chest will be better suited to evaluate this nodule. His electrocardiogram done on 01/13/2023 showed normal sinus rhythm, was a normal study. Medications: Tylenol Extra Strength 500 mg every 4 hours as needed, aspirin 81 mg daily, Lipitor 40 mg at bedtime, Lovenox 30 mg subcutaneously daily, folic acid 1 mg daily, lidocaine patch apply topic ally to affected area daily, melatonin 3 mg at bedtime, Ensure Enlive 237 mL twice daily. Review of Systems: Mr. Avila is sitting in a chair, getting ready to get into his bed. He denies any fevers, chills, nausea, vomiting. He reports some right-sided weakness in upper and lower extremities, incoordinati on in the right upper and lower extremities, some balance problems. Otherwise, no rash. No fever. No chills. No arthralgias. Some mild myalgias. No headache, weight change. No psychiatric issues. Physical Examination: Vital Signs: Blood pressure 142/60, pulse 74, respiratory rate 16, temperature 98.5, oxygen saturati on 96% on room air. General: Mr. Avila is resting comfortably. HEENT: He is normocephalic, atraumatic. Sclerae anicteric. Oropharynx pink and moist. Neck: Supple. Chest: Clear. Heart: Regular. Extremities: Show no significant edema or cyanosis. Neurologic: He does have a morales and appears somewhat disheveled. Cranial nerve exam, mild decrease in the right nasolabial fold with good excursions. Otherwise, intact cranial nerves aside from mild decrease in sensation in the right face. On motor examination, right upper extremity around 3+ to 4 /5 proximally and distally in the upper extremity, also in the lower extremity on the right. Decreas e to light touch and temperature in the right compared to left upper and lower extremity. Coordinati on slow, but intact in the upper and lower extremities bilaterally, with gait, tendency to fall to th e right. Reflexes symmetric. Laboratory Studies: White blood cell count 8.2, hemoglobin 13.1, platelets 218. INR 0.91. Chemistr y, sodium 137, potassium 4.1, chloride 109, carbon dioxide 23, creatinine 0.85, glucose 110-117, calc ium 8.6, triglycerides 124, total cholesterol 175, LDL cholesterol 106, HDL cholesterol 44, TSH 1.85, free T4 0.99. Urinalysis unremarkable except red blood cells 5-10. Current Level Of Functioning: Currently, eating is at moderate assistance. Oral hygiene, toileting, showering, moderate assistance. Upper and lower body dressing, moderate assistance. Donning and do ffing of shoes, moderate assistance. Rolling in bed, moderate assistance. Ambulating, moderate assi stance. Did cover 10 feet with a rolling walker. Rehabilitation And Medical Assessment And Plan: Mr. Avila is admitted to inpatient rehabilitation unit with an impairment category of 01 stroke. His impairment group code is right body involvement, left brain. His etiologic diagnosis is infarct of left basal ganglia, left internal capsule. His c omorbid disease conditions are decreased mobility, decrease in physical functioning, hypertension, ri ght hemiparesis, right-sided weakness, ataxia. Plan: 1.He will have physical and occupational and speech therapy as needed for 3.5 hours, 5 of 7 days. 2.Blood pressures will be managed with permissive hypertension currently since he is in acute stroke phase. He has dyslipidemia, which will be managed with Lipitor 40 mg at bedtime, aspirin 81 mg tika y and folic acid 1 mg daily for stroke risk reduction, melatonin 3 mg at night for insomnia. Ensure Enlive for poor nutrition. Impact Of Comorbids: Currently, he is a smoker and drinker and if need be, nicotine patch will be ap plied and thiamine and folic acid for potential alcohol withdrawal. Librium will be applied if need be. Otherwise, risk factors for hypertension. Again, permissive hypertension in the setting of acut e stroke until about a week from today. Rehab Specific Plan: 1.Mr. Avila will have physical, occupational, and speech therapy for 3.5 hours, 5 of 7 days. Thi s will be to improve his ability to regain strength in the right upper and lower extremity, to improv e facial movement, articulation and oral motor activity and to protect his airways as he swallows. I n addition, to improve his gait, balance, coordination and endurance. 2.Mr. Avila has a good understanding of the benefits of admission to the inpatient rehabilitation unit where he is expected to receive physical, occupational, and speech therapy. If need be, additi onal services from the Radiology Service, Pulmonary Service, and Psychiatric Service will be sought. Given his complex medical condition and risk of further complications, rehabilitation cannot be safe ly or effectively performed at a lower level facility such as a custodial facility. Barriers To Discharge: Mr. Avila does have alcohol and tobacco dependency and those will be mitig ated and they are not significant barriers. Estimated Length Of Stay: Currently based on how he is doing, could be 2 weeks. Disposition: Home. Prognosis: Good. Rehabilitation Goals: 1.Become independent with upper and lower body dressing. 2.Independent with transfers from bed, toilet, shower and to chair and to ambulate independently 250 feet. 3.Go up and down 10 steps independently. 4.Perform cognitive functioning independently. 5.Protect his airway independently and be able to eat a heart healthy diet independently. The above goals were reviewed with Mr. Avila and he is in agreement. I acknowledge I have personally performed a full physical examination on Mr. Avila no later than 2 4 hours after his admission to the inpatient rehabilitation facility and determined that if he is abl e to have course of treatment at an intensive level for a reasonable period of time. A detailed castro vidualized plan of care for him will be completed by hospital day 4 based on the preadmission screen, history and physical, and therapy evalu ations. ILYA Voice ID: [id number]
[2023-01-17] MEDS: ENOXAPARIN 30 MG/0.3 ML SQ SCH (07:44)
[2023-01-17] MEDS: ASPIRIN 81 MG CHEWABLE TABLET PO SCH (08:08)
[2023-01-17] MEDS: ENSURE ENLIVE 237 ML CAN PO SCH ×2 (08:08→20:06)
[2023-01-17] MEDS: FOLIC ACID 1 MG TABLET PO SCH (08:08)
[2023-01-17] MEDS: LIDOCAINE 4% PATCH TOP SCH (08:09)
--- NOTE | 2023-01-17 14:09 | P.RH.PN ---
Estimated Length of Stay: 12 Expected Discharge Date: 01/27/23 Discharge Disposition Plan: Home Family Support: Yes Vital Signs: Last Vital Signs Temp 97.2 F 01/17/23 06:46 Pulse 77 01/17/23 06:46 Resp 18 01/17/23 06:46 BP 148/72 H 01/17/23 06:46 Pulse Ox 95 01/17/23 06:46 Laboratory: Laboratory Last Values WBC 8.90 thou/uL (4.3-10.9) 01/17/23 03:40 RBC 4.44 M/uL (4.33-5.43) 01/17/23 03:40 Hgb 14.3 g/dL (13.6-17.9) 01/17/23 03:40 Hct 42.6 % (39.6-49.0) 01/17/23 03:40 MCV 95.8 fL (80-100) 01/17/23 03:40 MCH 32.2 pg (27.0-35.0) 01/17/23 03:40 MCHC 33.6 g/dL (32.0-36.0) 01/17/23 03:40 RDW 16.0 % (12.1-15.2) H 01/17/23 03:40 Plt Count 230 thou/uL (152-406) 01/17/23 03:40 MPV 8.6 fL (7.6-11.3) 01/17/23 03:40 Neutrophils % 60.8 % (41.7-73.7) 01/17/23 03:40 Lymphocytes % 26.5 % (15.3-44.8) 01/17/23 03:40 Monocytes % 10.8 % (3.3-12.3) 01/17/23 03:40 Eosinophils % 1.2 % (0-4.4) 01/17/23 03:40 Basophils % 0.7 % (0-1.3) 01/17/23 03:40 Absolute Neutrophils 5.4 K/uL (1.8-8.0) 01/17/23 03:40 Absolute Lymphocytes 2.4 K/uL (0.7-4.9) 01/17/23 03:40 Absolute Monocytes 1.0 K/uL (0.1-1.3) 01/17/23 03:40 Absolute Eosinophils 0.1 K/uL (0-0.5) 01/17/23 03:40 Absolute Basophils 0.1 K/uL (0-0.5) 01/17/23 03:40 Sodium 135 mEq/L (136-145) L 01/17/23 03:40 Potassium 4.4 mEq/L (3.5-5.1) 01/17/23 03:40 Chloride 107 mEq/L (98-107) 01/17/23 03:40 Carbon Dioxide 24 mEq/L (21-32) 01/17/23 03:40 Anion Gap 8.4 mEq/L (5.0-15.0) 01/17/23 03:40 BUN 22 mg/dL (7-18) H 01/17/23 03:40 Creatinine 0.78 mg/dL (0.70-1.30) 01/17/23 03:40 Est GFR (CKD-EPI) 99 ml/min (=/>90) 01/17/23 03:40 Glucose 114 mg/dL (74-106) H 01/17/23 03:40 POC Glucose 121 mg/dL (65-120) H 01/16/23 19:38 Calcium 8.5 mg/dL (8.5-10.1) 01/17/23 03:40 Magnesium 2.3 mg/dL (1.6-2.4) 01/17/23 03:40 Albumin 3.6 g/dL (3.4-5.0) 01/17/23 03:40 Prealbumin 24.0 mg/dL (20-40) 01/17/23 03:40 Urine Color Light-yellow (Yellow) 01/16/23 14:30 Urine Clarity Clear (Clear) 01/16/23 14:30 Urine pH 6.0 (5.0-7.0) 01/16/23 14:30 Ur Specific [place] 1.029 (1.005-1.030) 01/16/23 14:30 Glucose (UA)(Auto) Negative (Negative) 01/16/23 14:30 Urine Ketones Negative (Negative) 01/16/23 14:30 Urine Blood Negative (Negative) 01/16/23 14:30 Urine Nitrite Negative (Negative) 01/16/23 14:30 Urine Bilirubin Negative (Negative) 01/16/23 14:30 Urine Urobilinogen Normal (Normal) 01/16/23 14:30 Ur Leukocyte Esterase Negative [place]/uL (Negative) 01/16/23 14:30 Urine RBC 5-10 /HPF (None Seen) H 01/16/23 14:30 Urine WBC <5 /HPF (<5) 01/16/23 14:30 Ur Squamous Epith Cells None seen /HPF (None Seen) 01/16/23 14:30 Urine Bacteria None seen /HPF (<20) 01/16/23 14:30 Urine Culture Reflexed Not needed 01/16/23 14:30 Urine Total Protein Negative (Negative) 01/16/23 14:30 Weight: 111 lb Negative Pressure Wound Therapy Present: No Physician Update: Making good progress with all therapy BIMS 15. He is on heart healthy diet. Functional right sided strength walked 50' with min assistance. Very impulsive improved dexterity. He has a lung nodule requiring follow-up after discharge. Summary: Patient's care plan and watermaster goals have been reviewed and revised as necessary. Please see the Rehabilitation Signature page for all necessary signatures.
[2023-01-17] MEDS: GABAPENTIN 100 MG CAP PO SCH (15:00)
[2023-01-17] MEDS: NICOTINE 14 MG/PAT TD SCH (17:13)
[2023-01-17] MEDS: ATORVASTATIN 40 MG TAB PO SCH (20:06)
[2023-01-17] MEDS: MELATONIN 3 MG TABLET PO PRN (20:09)
[2023-01-18] MEDS: LIDOCAINE 4% PATCH TOP SCH (07:56)
[2023-01-18] MEDS: GABAPENTIN 100 MG CAP PO SCH (07:57)
[2023-01-18] MEDS: NICOTINE 14 MG/PAT TD SCH (07:57)
[2023-01-18] MEDS: FOLIC ACID 1 MG TABLET PO SCH (07:57)
[2023-01-18] MEDS: ENOXAPARIN 30 MG/0.3 ML SQ SCH (07:57)
[2023-01-18] MEDS: ASPIRIN 81 MG CHEWABLE TABLET PO SCH (07:58)
[2023-01-18] MEDS: ENSURE ENLIVE 237 ML CAN PO SCH ×2 (08:04→19:30)
[2023-01-18] MEDS: PANTOPRAZOLE 40MG TABLET PO SCH (09:18)
[2023-01-18] MEDS: ATORVASTATIN 40 MG TAB PO SCH (19:30)
[2023-01-19] MEDS: PANTOPRAZOLE 40MG TABLET PO SCH (07:25)
[2023-01-19] MEDS: LIDOCAINE 4% PATCH TOP SCH (07:25)
[2023-01-19] MEDS: NICOTINE 14 MG/PAT TD SCH (07:26)
[2023-01-19] MEDS: ENOXAPARIN 30 MG/0.3 ML SQ SCH (07:26)
[2023-01-19] MEDS: GABAPENTIN 100 MG CAP PO SCH (07:27)
[2023-01-19] MEDS: ENSURE ENLIVE 237 ML CAN PO SCH ×2 (07:27→19:01)
[2023-01-19] MEDS: FOLIC ACID 1 MG TABLET PO SCH (07:27)
[2023-01-19] MEDS: ASPIRIN 81 MG CHEWABLE TABLET PO SCH (07:27)
[2023-01-19] MEDS: DOCUSATE NA/SENNA CONC 1 TAB PO SCH (19:01)
[2023-01-19] MEDS: ATORVASTATIN 40 MG TAB PO SCH (19:01)
[2023-01-20] MEDS: ENOXAPARIN 30 MG/0.3 ML SQ SCH (07:30)
[2023-01-20] MEDS: FOLIC ACID 1 MG TABLET PO SCH (07:30)
[2023-01-20] MEDS: GABAPENTIN 100 MG CAP PO SCH (07:30)
[2023-01-20] MEDS: ASPIRIN 81 MG CHEWABLE TABLET PO SCH (07:30)
[2023-01-20] MEDS: PANTOPRAZOLE 40MG TABLET PO SCH (07:30)
[2023-01-20] MEDS: ENSURE ENLIVE 237 ML CAN PO SCH ×2 (07:31→20:01)
[2023-01-20] MEDS: NICOTINE 14 MG/PAT TD SCH (10:57)
[2023-01-20] MEDS: LIDOCAINE 4% PATCH TOP SCH (10:58)
[2023-01-20] MEDS: DOCUSATE NA/SENNA CONC 1 TAB PO SCH (20:01)
[2023-01-20] MEDS: ATORVASTATIN 40 MG TAB PO SCH (20:01)
--- NOTE | 2023-01-21 01:45 | PN ---
Date of Progress Note: 01/20/2023 Time Of Service: 1:30 p.m. Subjective: Mr. Avila is in a chair getting ready to do therapy. He is feeling very good about h is therapy. He does say he feels slightly worried about where he is going back to. He was living in the living room of a friend. Otherwise, denies any new complaints in terms of subjective complaints . Review of Systems: No fevers or chills, nausea or vomiting. He did want to have the nicotine patch stopped and that was discontinued. Otherwise, negative on review of systems. Physical Examination: Vital Signs: Blood pressure 166/75, pulse 85, respiratory rate 18, temperature 97.2, oxygen saturati on 97%. Extremities: Mr. Avila has some improving strength in the right upper extremity, now around 4/5 p roximally and distally and has slightly decreased sensation in the right compared to left upper extre mity. Otherwise, no changes on his examination. Laboratory Studies: Complete blood count with differential from 01/17/2023, unremarkable. Chemistry from 01/17/2023, shows slightly low sodium of 135. BUN slightly elevated at 22. Glucose ranged fro m 114 to 121. Otherwise, rest of those studies were normal. X-ray/imaging: No new x-rays or imaging. Medications: Tylenol 500 mg every 6 hours as needed, 81 mg aspirin daily, Lipitor 40 mg at bedtime, Lovenox 40 mg subcutaneously daily, folic acid 1 mg daily, gabapentin 100 mg daily, lidocaine patch a pply topically daily, melatonin 3 mg at bedtime, Ensure Enlive 237 mL twice daily, Protonix 40 mg roberto ly, and Senokot-S 2 at bedtime. Current Functional Status: Mr. Doshi was able to ambulate 250 feet with contact guard assistance using a rolling walker. He was up and down 15 steps with minimum assistance to contact guard assist ance. With his occupational therapy, bathing with supervision; upper body dressing, independent; low er body dressing, at supervision level; transfers done with standby assistance. Progress Toward Rehabilitation Goals: Mr. Avila is making excellent progress towards his goals of becoming independent with upper and lower body dressing, transferring, toileting, and ambulating 500 feet with modified independence, up and down 15 steps, modified independence and to continue perform ing his cognitive functioning with modified independence. Assessment: Mr. Avila is a 67-year-old patient in the rehabilitation unit with a stroke involving his left brain and right body. The stroke was in left basal ganglia and left internal capsule. He is making good progress in terms of his recovery, of strength, coordination, his ability to mobilize. He does have hypertension, and ataxia, which again are improving. In addition, he has dyslipidemia and arthritic pain. Plan: 1.Continue with physical and occupational therapy for 3 hours a day, 5 of 7 days. 2.We will continue Senokot-S for constipation, Protonix for GE reflux, Ensure Enlive for malnutritio n. Continue Senokot-S for arthritic pain, gabapentin for neuropathic pain. Continue Lovenox for DVT prophylaxis. Continue Lipitor for dyslipidemia and continue aspirin for stroke risk reduction. Comorbidities That Continue To Impact His Rehabilitation: Currently, his comorbidities have been wel l managed and do not negatively impact his rehabilitation. ARMIDA/MITESHL Voice ID: [id number] Report ID: [id number]
[2023-01-21] MEDS: FOLIC ACID 1 MG TABLET PO SCH (07:21)
[2023-01-21] MEDS: ENOXAPARIN 40 MG/0.4 ML SQ SCH (07:21)
[2023-01-21] MEDS: LIDOCAINE 4% PATCH TOP SCH (07:21)
[2023-01-21] MEDS: GABAPENTIN 100 MG CAP PO SCH (07:21)
[2023-01-21] MEDS: PANTOPRAZOLE 40MG TABLET PO SCH (07:21)
[2023-01-21] MEDS: ASPIRIN 81 MG CHEWABLE TABLET PO SCH (07:21)
[2023-01-21] MEDS: ENSURE ENLIVE 237 ML CAN PO SCH ×2 (07:22→19:59)
[2023-01-21] MEDS: ATORVASTATIN 40 MG TAB PO SCH (19:59)
[2023-01-21] MEDS: DOCUSATE NA/SENNA CONC 1 TAB PO PRN (19:59)
--- NOTE | 2023-01-22 00:39 | PN ---
Date of Progress Note: 01/21/2023 Time Of Service: 1:50 p.m. Subjective: Mr. Avila is in the gym, doing therapy. He is very happy with his recovery from his stroke. He says he has left upper and lower extremities, he is getting much stronger, more dexterity . Has no new complaints. Review of Systems: Denies any significant fevers, chills, nausea, vomiting, any myalgias, arthralgias, rash, headache, w eight change. Physical Examination: Vital Signs: Blood pressure 172/76, pulse 82 to 97, respiratory rate 16 to 18, temperature 98, oxyge n saturation 96%. General: Mr. Avila is resting comfortably in a chair. He is in no acute distress. HEENT: Normocephalic, atraumatic. Sclerae anicteric. Oropharynx pink, moist. Neck: Supple. Chest: Clear. Heart: Has a stroke, which affected his right body and left brain, is actually improving very well. Stroke was in the left basal ganglia and left internal capsule. He does have dyslipidemia, arthriti c pain, hypertension, and ataxic gait. Plan: 1.He will continue with physical, occupational, and speech therapy for 3.5 hours, 5 of 7 days. 2.Continue with multiple comorbid condition medications including Ensure Enlive for malnutrition, Se nokot-S for constipation, gabapentin for neuropathic pain, Lovenox for DVT prophylaxis, Lipitor for d yslipidemia, and aspirin for stroke risk reduction. Comorbidities That Continue To Impact Rehabilitation: His comorbidities are not negatively impacting his rehabilitation and he is thriving and doing very well. His biggest issue is going home where he actually lives in the living room of a friend. He does not have a home on his own. ARMIDA/MITESHL Voice ID: [id number] Report ID: [id number]
[2023-01-22] MEDS: PANTOPRAZOLE 40MG TABLET PO SCH (06:54)
[2023-01-22] MEDS: ENOXAPARIN 40 MG/0.4 ML SQ SCH (07:11)
[2023-01-22] MEDS: FOLIC ACID 1 MG TABLET PO SCH (08:24)
[2023-01-22] MEDS: LIDOCAINE 4% PATCH TOP SCH (08:24)
[2023-01-22] MEDS: ENSURE ENLIVE 237 ML CAN PO SCH ×2 (08:25→19:07)
[2023-01-22] MEDS: GABAPENTIN 100 MG CAP PO SCH (08:25)
[2023-01-22] MEDS: ASPIRIN 81 MG CHEWABLE TABLET PO SCH (08:25)
[2023-01-22] MEDS ORDERED: MAGNES/ALUMIN/SIMET 30ML UCUP PO PRN (16:36)
[2023-01-22] MEDS: ATORVASTATIN 40 MG TAB PO SCH (19:06)
[2023-01-22] MEDS: DOCUSATE NA/SENNA CONC 1 TAB PO PRN (19:07)
[2023-01-23 04:06] LABS: Absolute Lymphocytes (CBC) 1.7 K/uL (0.7-4.9); Hematocrit 38.1 % (39.6-49.0); Lymphocytes % 23.4 % (15.3-44.8); MCV 95.9 fL (80-100); MPV 9.1 fL (7.6-11.3); Platelets 201 thou/uL (152-406); RBC Red Blood Cell Count 3.97 M/uL (4.33-5.43)
[2023-01-23 04:28] LABS: Albumin 3.4 g/dL (3.4-5.0); Magnesium 2.2 mg/dL (1.6-2.4); Potassium 4.7 mEq/L (3.5-5.1); Prealbumin 20.3 mg/dL (20-40)
[2023-01-23] MEDS: PANTOPRAZOLE 40MG TABLET PO SCH (06:49)
[2023-01-23] MEDS: FOLIC ACID 1 MG TABLET PO SCH (07:16)
[2023-01-23] MEDS: ENOXAPARIN 40 MG/0.4 ML SQ SCH (07:16)
[2023-01-23] MEDS: ASPIRIN 81 MG CHEWABLE TABLET PO SCH (07:16)
[2023-01-23] MEDS: LIDOCAINE 4% PATCH TOP SCH (07:16)
[2023-01-23] MEDS: GABAPENTIN 100 MG CAP PO SCH (07:17)
[2023-01-23] MEDS: ENSURE ENLIVE 237 ML CAN PO SCH ×2 (10:39→19:47)
[2023-01-23] MEDS: ATORVASTATIN 40 MG TAB PO SCH (19:42)
[2023-01-23] MEDS: MELATONIN 3 MG TABLET PO PRN (19:46)
[2023-01-23] MEDS ORDERED: GABAPENTIN 100 MG CAP PO SCH (21:00)
[2023-01-23] MEDS ORDERED: DOCUSATE NA/SENNA CONC 1 TAB PO SCH (21:00)
--- NOTE | 2023-01-24 | PN ---
Date of Progress Note: 01/23/2023 Time Of Service: 12:30 p.m. Subjective: Mr. Avila is doing well. He is happy with the improvement in strength after his stro ke, which affected his right upper and lower extremities. Review of Systems: He denies any fevers, chills, nausea, vomiting. No significant myalgias, arthralgias, rash, headache , weight change. Physical Examination: Vital Signs: Orthostatic blood pressures with lying 156/74, pulse 82, sitting 160/77, pulse 89, and standing 162/79 and pulse 88. He was asymptomatic during catheterization. HEENT: He is otherwise normocephalic, atraumatic. Sclerae anicteric. Oropharynx pink, moist. Extremities: His right upper and lower extremity strength is improving well. Laboratory Studies: White blood cell count 7.0, hemoglobin 12.9, platelets 201. Sodium 138, potassi um 4.7, chloride 108, carbon dioxide 30, BUN 26, creatinine 0.89, prealbumin 20.3, albumin 3.4. X-ray/imaging: None. Medications: Medications have been reviewed and remained unchanged. Current Functional Status: Today he ambulated 200 feet with standby assistance using a quad cane wit hout a right foot ankle-foot orthosis. He also independently ambulated 250 feet with a quad cane wit h the AFO. He did another 250 feet using a rolling walker without an AFO and that he did it independ ently. Supine sit transfers done independently. He ascended and descended 20 steps independently wi th bilateral handrails. In terms of his occupational therapy, he did require verbal cues to transfer due to lack of safety awareness and some impulsivity. Independent for bathing, upper and lower body dressing, and toileting. Grooming independent while in a wheelchair. Progress Towards Rehabilitation Goals: Mr. Avila has now almost met all of his rehabilitation goa ls to be independent with upper and lower body dressing, transferring, toileting, ambulating 250 feet independently up and down 20 steps independently and performing all cognitive functioning independen tly. Assessment: Mr. Avila is a 67-year-old patient in the rehabilitation unit with left basal ganglia , left internal capsule stroke producing right-sided weakness upper and lower extremities. He has dy slipidemia, arthritis, hypertension. Plan: 1.Continue with physical, occupational, and speech therapy for 3.5 hours, 5 of 7 days. 2.Continue for his malnutrition with Ensure Enlive. 3.Continue Senokot for constipation. 4.Gabapentin for neuropathic pain. 5.Lovenox for DVT prophylaxis. 6.Lipitor for dyslipidemia. 7.Aspirin for stroke risk reduction. Comorbidities That Continue To Impact Rehabilitation Process: Currently he is doing well and has no negative issues impacting his rehabilitation. ARMIDA/DANILO Voice ID: [id number] Report ID: [id number]
[2023-01-24] MEDS: PANTOPRAZOLE 40MG TABLET PO SCH (06:59)
[2023-01-24 07:04] VITALS: BP 129/66; TEMP 97.7
[2023-01-24] MEDS: FOLIC ACID 1 MG TABLET PO SCH (07:15)
[2023-01-24] MEDS: LIDOCAINE 4% PATCH TOP SCH (07:15)
[2023-01-24] MEDS: ASPIRIN 81 MG CHEWABLE TABLET PO SCH (07:15)
[2023-01-24] MEDS: ENOXAPARIN 40 MG/0.4 ML SQ SCH (07:16)
[2023-01-24] MEDS: ENSURE ENLIVE 237 ML CAN PO SCH (07:17)
== END 2023-01-24 10:20 | disposition home health service (06) | DRG 57 ==
LOC: 5TH 13:40
PROVIDERS: ADMIT Psychiatry & Neurology Neurology with Special Qualifications in Child Neurology; ATTEND Psychiatry & Neurology Neurology with Special Qualifications in Child Neurology
DX: I69.351 Hemiplegia and hemiparesis following cerebral infarction affecting right dominant side (principal); E46 Unspecified protein-calorie malnutrition; Z68.1 Body mass index [BMI] 19.9 or less, adult; I69.393 Ataxia following cerebral infarction; I10 Essential (primary) hypertension; E78.5 Hyperlipidemia, unspecified; G47.00 Insomnia, unspecified; K59.00 Constipation, unspecified
CPT/HCPCS: 36415; 80048; 81001; 82040; 82947; 83735; 84134; 85025; 87086; 87088; 94010; 97110; 97112; 97116; 97163; 97165; 97530; 97542; J1650; J2001